=== PATIENT | male | born 1980 | race African-American/Black ===

== ENCOUNTER 2018-02-10 04:31 | Emergency (ER) | payer BC ==
--- NOTE | 2018-02-10 05:05 | ER ---
Nurse's Notes [facility] Name: Shahid Lopez Age: 37 yrs Sex: Male : 1980 Arrival Date: 02/10/2018 Time: 04:33 Bed 15 Private MD: Diagnosis: Puncture wound without foreign body, left foot-stingray Presentation: 02/10 04:35 Presenting complaint: Patient states: that he was wading in the water and got stung by fc a sting ray to right inner foot/heel area. Transition of care: patient was not received from another setting of care. Onset of symptoms was February 10, 2018 at 03:30. Risk Assessment: Do you want to hurt yourself or someone else? Patient reports no desire to harm self or others. Initial Sepsis Screen: Does the patient meet any 2 criteria? No. Patient's initial sepsis screen is negative. Does the patient have a suspected source of infection? No. Patient's initial sepsis screen is negative. Care prior to arrival: Medication(s) given: Motrin, 400 mg, taken at 0340. 04:35 Method Of Arrival: Wheelchair 04:35 Acuity: SHANA 4 fc Historical: - Allergies: 04:57 No Known Allergies; eb1 - Home Meds: 04:57 None [Active]; eb1 - PMHx: 04:57 None; eb1 - PSHx: 04:57 None; eb1 - Immunization history:: Last tetanus immunization: unknown. - Social history:: Smoking status: Patient uses tobacco products, denies chronic smoking, but will smoke occasionally, Patient uses alcohol, only on a social basis. Patient/guardian denies using street drugs. - Ebola Screening: : Patient negative for fever greater than or equal to 101.5 degrees Fahrenheit, and additional compatible Ebola Virus Disease symptoms Patient denies exposure to infectious person Patient denies travel to an Ebola-affected area in the 21 days before illness onset. - Family history:: not pertinent. Screenin:46 Abuse screen: Denies threats or abuse. Nutritional screening: No deficits noted. fc Tuberculosis screening: No symptoms or risk factors identified. Fall Risk None identified. Assessment: 04:48 General: Appears in no apparent distress. well groomed, well developed, well nourished, eb1 Behavior is calm, cooperative, appropriate for age, Smells of alcohol. Pain: Complains of pain in right foot Pain radiates to right ankle Pain at worst was 10 out of 10 on a pain scale. Quality of pain is described as burning, numb, Pain began 30 min ago. Is continuous. Pain:. Neuro: No deficits noted. Level of Consciousness is awake, alert, obeys commands, Oriented to person, place, time. Cardiovascular: No deficits noted. Denies chest pain, Heart tones present Capillary refill < 3 seconds Patient's skin is warm and dry. Pulses are all present. Rhythm is sinus rhythm. Respiratory: No deficits noted. Airway is patent Breath sounds are clear. Derm: Skin is pink, warm \\T\\ dry. Wound noted right foot Wound is scratch to the right inner ankle. Patient states "I had just started fishing and a sting ray grazed my foot. 05:30 Reassessment: No changes from previously documented assessment. Patient and/or family eb1 updated on plan of care and expected duration. Pain level reassessed. Patient is alert, oriented x 3, equal unlabored respirations, skin warm/dry/pink. Vital Signs: 04:35 BP 154 / 91; Pulse 80; Resp 18; Temp 97.4(O); Pulse Ox 100% on R/A; Weight 111.13 kg fc (R); Height 5 ft. 9 in. (175.26 cm); Pain 10/10; 06:00 BP 141 / 110; Pulse 119; Resp 20; Temp 98.5(O); Pulse Ox 100% on R/A; Pain 9/10; eb1 06:00 BP 153 / 97; Pulse 90; Resp 20; Temp 98.7(O); Pulse Ox 100% on R/A; Pain 6/10; eb1 06:01 BP 153 / 97; Pulse 90; Resp 20; Temp 98.7(TE); Pulse Ox 100% on R/A; Pain 6/10; eb1 06:02 BP 153 / 97; Pulse 90; Resp 20; Temp 98.7(TE); Pulse Ox 100% on R/A; Pain 6/10; eb1 04:35 Body Mass Index 36.18 (111.13 kg, 175.26 cm) ED Course: 04:33 Patient arrived in ED. am2 04:35 Arm band placed on Patient placed in an exam room, on a stretcher. 04:42 Triage completed. 04:46 Patient has correct armband on for positive identification. Bed in low position. Call light in reach. 04:46 No provider procedures requiring assistance completed. 04:59 Mateo Thompson MD is Attending Physician. [facility] 05:26 X-ray completed. Portable x-ray completed in exam room. Patient tolerated procedure jw2 well. 05:28 Foot Right 3 View In Process Unspecified. EDMS 06:09 No apparent distress. eb1 06:09 Patient did not have IV access during this emergency room visit. eb1 Administered Medications: 05:13 Drug: [place] 10 mg-325 mg 1 tabs Route: PO; eb1 06:02 Follow up: BP 153 / 97; Pulse 90 bpm; Resp 20 bpm; Temp 98.7 Temporal; Pulse Ox 100% eb1 RA; Pain 6/10 Adult 05:13 Drug: Doxycycline 200 mg Route: PO; eb1 06:01 Follow up: BP 153 / 97; Pulse 90 bpm; Resp 20 bpm; Temp 98.7 Temporal; Pulse Ox 100% eb1 RA; Pain 6/10 Adult 05:27 Drug: Tetanus-Diphtheria Toxoid Adult 0.5 ml {Pinion Staker: [place]. Exp: eb1 04/18/2020. Lot #: [id number]. } Route: IM; Site: right deltoid; 06:07 Follow up: Response: No adverse reaction eb1 Outcome: 04:56 Condition: good eb1 05:04 Discharge ordered by . [facility] 06:00 Discharge instructions given to patient, Instructed on discharge instructions, eb1 medication usage, wound care, Demonstrated understanding of Prescriptions given X 2. 06:05 Patient left the ED. eb1 06:09 Discharged to home via wheelchair. eb1 Signatures: Dispatcher [employer] [facility] Mateo Thompson MD MD cha Chretien, Felicia, RN RN Nayana Finn2 Joy Greene am2 Katlyn Arndt RN RN eb1
--- NOTE | 2018-02-10 05:05 | EDPHYS ---
Physician Documentation [facility] Name: Shahid Lopez Age: 37 yrs Sex: Male : 1980 Arrival Date: 02/10/2018 Time: 04:33 Bed 15 Private MD: ED Physician Mateo Thompson HPI: 02/10 05:01 This 37 yrs old Black Male presents to ER via Wheelchair with complaints of Stingray kody injury. 05:01 The patient presents with pain, a puncture wound, swelling, tenderness. The complaints kody affect the left foot. Context: The problem was sustained surf, stingray. Onset: The symptoms/episode began/occurred just prior to arrival. Modifying factors: The symptoms are alleviated by nothing, the symptoms are aggravated by movement. Associated signs and symptoms: The patient has no apparent associated signs or symptoms. Severity of symptoms: At their worst the symptoms were mild, in the emergency department the symptoms are unchanged. The patient has not experienced similar symptoms in the past. Historical: - Allergies: 04:57 No Known Allergies; eb1 - Home Meds: 04:57 None [Active]; eb1 - PMHx: 04:57 None; eb1 - PSHx: 04:57 None; eb1 - Immunization history:: Last tetanus immunization: unknown. - Social history:: Smoking status: Patient uses tobacco products, denies chronic smoking, but will smoke occasionally, Patient uses alcohol, only on a social basis. Patient/guardian denies using street drugs. - Ebola Screening: : Patient negative for fever greater than or equal to 101.5 degrees Fahrenheit, and additional compatible Ebola Virus Disease symptoms Patient denies exposure to infectious person Patient denies travel to an Ebola-affected area in the 21 days before illness onset. - Family history:: not pertinent. ROS: 05:01 Constitutional: Negative for fever, chills, and weight loss, Eyes: Negative for injury, kody pain, redness, and discharge, ENT: Negative for injury, pain, and discharge, Neck: Negative for injury, pain, and swelling, Cardiovascular: Negative for chest pain, palpitations, and edema, Respiratory: Negative for shortness of breath, cough, wheezing, and pleuritic chest pain, Abdomen/GI: Negative for abdominal pain, nausea, vomiting, diarrhea, and constipation, Back: Negative for injury and pain, : Negative for injury, bleeding, discharge, and swelling, Skin: Negative for injury, rash, and discoloration, Neuro: Negative for headache, weakness, numbness, tingling, and seizure, Psych: Negative for depression, anxiety, suicide ideation, homicidal ideation, and hallucinations, Allergy/Immunology: Negative for hives, rash, and allergies, Endocrine: Negative for neck swelling, polydipsia, polyuria, polyphagia, and marked weight changes, Hematologic/Lymphatic: Negative for swollen nodes, abnormal bleeding, and unusual bruising. 05:01 MS/extremity: Positive for decreased range of motion, pain, swelling, tenderness, of the medial aspect of left heel. Exam: 05:01 Constitutional: This is a well developed, well nourished patient who is awake, alert, kody and in no acute distress. Head/Face: Normocephalic, atraumatic. Eyes: Pupils equal round and reactive to light, extra-ocular motions intact. Lids and lashes normal. Conjunctiva and sclera are non-icteric and not injected. Cornea within normal limits. Periorbital areas with no swelling, redness, or edema. ENT: Nares patent. No nasal discharge, no septal abnormalities noted. Tympanic membranes are normal and external auditory canals are clear. Oropharynx with no redness, swelling, or masses, exudates, or evidence of obstruction, uvula midline. Mucous membranes moist. Neck: Trachea midline, no thyromegaly or masses palpated, and no cervical lymphadenopathy. Supple, full range of motion without nuchal rigidity, or vertebral point tenderness. No Meningismus. Chest/axilla: Normal chest wall appearance and motion. Nontender with no deformity. No lesions are appreciated. Cardiovascular: Regular rate and rhythm with a normal S1 and S2. No gallops, murmurs, or rubs. Normal PMI, no JVD. No pulse deficits. Respiratory: Lungs have equal breath sounds bilaterally, clear to auscultation and percussion. No rales, rhonchi or wheezes noted. No increased work of breathing, no retractions or nasal flaring. Abdomen/GI: Soft, non-tender, with normal bowel sounds. No distension or tympany. No guarding or rebound. No evidence of tenderness throughout. Back: No spinal tenderness. No costovertebral tenderness. Full range of motion. Male : Normal genitalia with no discharge or lesions. Skin: Warm, dry with normal turgor. Normal color with no rashes, no lesions, and no evidence of cellulitis. Neuro: Awake and alert, GCS 15, oriented to person, place, time, and situation. Cranial nerves II-XII grossly intact. Motor strength 5/5 in all extremities. Sensory grossly intact. Cerebellar exam normal. Normal gait. Psych: Awake, alert, with orientation to person, place and time. Behavior, mood, and affect are within normal limits. 05:01 Musculoskeletal/extremity: Extremities: noted in the medial aspect of left heel: decreased ROM, pain. Vital Signs: 04:35 BP 154 / 91; Pulse 80; Resp 18; Temp 97.4(O); Pulse Ox 100% on R/A; Weight 111.13 kg fc (R); Height 5 ft. 9 in. (175.26 cm); Pain 10/10; 06:00 BP 141 / 110; Pulse 119; Resp 20; Temp 98.5(O); Pulse Ox 100% on R/A; Pain 9/10; eb1 06:00 BP 153 / 97; Pulse 90; Resp 20; Temp 98.7(O); Pulse Ox 100% on R/A; Pain 6/10; eb1 06:01 BP 153 / 97; Pulse 90; Resp 20; Temp 98.7(TE); Pulse Ox 100% on R/A; Pain 6/10; eb1 06:02 BP 153 / 97; Pulse 90; Resp 20; Temp 98.7(TE); Pulse Ox 100% on R/A; Pain 6/10; eb1 04:35 Body Mass Index 36.18 (111.13 kg, 175.26 cm) MDM: 04:59 Patient medically screened. [facility] 05:03 Data reviewed: vital signs, nurses notes, radiologic studies, plain films. [facility] 02/10 05:11 Order name: Foot Right 3 View EDVT 02/10 05:01 Order name: Wound Care; Complete Time: 05:30 kody Administered Medications: 05:13 Drug: [place] 10 mg-325 mg 1 tabs Route: PO; eb1 06:02 Follow up: BP 153 / 97; Pulse 90 bpm; Resp 20 bpm; Temp 98.7 Temporal; Pulse Ox 100% eb1 RA; Pain 6/10 Adult 05:13 Drug: Doxycycline 200 mg Route: PO; eb1 06:01 Follow up: BP 153 / 97; Pulse 90 bpm; Resp 20 bpm; Temp 98.7 Temporal; Pulse Ox 100% eb1 RA; Pain 02/24 Adult 05:27 Drug: Tetanus-Diphtheria Toxoid Adult 0.5 ml {Wellness Coordinator: [place]. Exp: eb1 04/18/2020. Lot #: [id number]. } Route: IM; Site: right deltoid; 06:07 Follow up: Response: No adverse reaction eb1 Disposition: 02/10/18 05:04 Discharged to Home. Impression: Puncture wound without foreign body, left foot - stingray. - Condition is Stable. - Discharge Instructions: Puncture Wound, Puncture Wound, [id number]. - Prescriptions for Tylenol- Codeine #3 300-30 mg Oral Tablet - take 2 tablet by ORAL route every 6 hours As needed; 30 tablet. Doxycycline Hyclate 100 mg Oral Tablet - take 1 tablet by ORAL route every 12 hours; 14 tablet. - Medication Reconciliation Form, Thank You Letter, Antibiotic Education, Prescription Opioid Use form. - Follow up: Private Physician; When: 2 - 3 days; Reason: Recheck today's complaints, Continuance of care, Re-evaluation by your physician. - Problem is new. - Symptoms have improved. Signatures: Dispatcher [employer] [facility] Mateo Thompson MD MD cha Chretien, Felicia, RN RN Katlyn Arndt RN RN eb1 Corrections: (The following items were deleted from the chart) 05:11 05:02 Foot Left 3 View+RAD.RAD.[email or web address] ordered. [facility] 06:05 05:04 02/10/2018 05:04 Discharged to Home. Impression: Puncture wound without foreign eb1 body, left foot - stingray. Condition is Stable. Forms are Medication Reconciliation Form, Thank You Letter, Antibiotic Education, Prescription Opioid Use. Follow up: Private Physician; When: 2 - 3 days; Reason: Recheck today's complaints, Continuance of care, Re-evaluation by your physician. Problem is new. Symptoms have improved. kody
[2018-02-10] MEDS ORDERED: HYDROCODONE/APAP 10/325 TAB ONE (05:07)
[2018-02-10] MEDS ORDERED: DOXYCYCLINE 100 MG CAP PO ONE (05:07)
[2018-02-10] MEDS ORDERED: TETANUS & DIPHTHERIA TOX,ADULT 0.5 ML VIAL ONE (05:08)
--- NOTE | 2018-02-10 11:13 | RAD REPORT ---
EXAM DESCRIPTION: RAD - Foot Right 3 View - 02/10/2018 5:28 am CLINICAL HISTORY: Sting ray injury COMPARISON: None. FINDINGS: No acute bone finding. No foreign body in the soft tissues.
== END 2018-02-10 06:05 | disposition home or self-care (01) ==
LOC: ER 04:31
DX: S91.332A Puncture wound without foreign body, left foot, initial encounter (principal); W56.81XA Bitten by other nonvenomous marine animals, initial encounter; Y93.9 Activity, unspecified; Y92.832 Beach as the place of occurrence of the external cause
CPT/HCPCS: 90714; 99284